=== PATIENT | male | born 1990 | race African-American/Black ===

== ENCOUNTER → 2020-09-16 09:29 | Outpatient (CLI) | payer OTHER, SELFPAY ==
--- NOTE | ~2020-09-16 | XR_ITS ---
EXAMINATION: XR knee LT 3V DATE: 09/16/2020 09:51 INDICATION: Left knee pain. TECHNIQUE: 3 views of left knee were obtained. COMPARISON: Left tibia and fibula radiographs 09/21/2016 FINDINGS: Bone alignment is normal. No fracture. Joint spaces are well maintained. There is a small k nee joint effusion. IMPRESSION: 1. Small knee joint effusion. Reviewed, dictated and finalized at location A. [employer]
== END ==
PROVIDERS: PCP Nurse Practitioner Family; Visit Provider Nurse Practitioner Family
DX: M25.462 Effusion, left knee (principal)
CPT/HCPCS: 73562

== ENCOUNTER → 2020-12-05 11:34 | Outpatient (CLI) | payer OTHER, SELFPAY ==
--- NOTE | ~2020-12-05 | XR_ITS ---
EXAMINATION: XR knee LT 3V EXAM DATE: 12/05/2020 12:16 INDICATION: Left posterior knee pain after playing ball x 2-3 weeks ago. Hx of fluid on left knee x 4 months ago. No surgery. TECHNIQUE: Three projections of the left knee. Comparison is made to prior examination from 09/16/2020 . FINDINGS: No evidence osteochondral defect or joint body in the left knee joint. There is left pat ellar mild to moderate lateral tilt and subluxation. No joint effusion. There are no acute fractures or dislocations identified. There is no subcutaneous gas. The soft tissue is unremarkable. There are no radiopaque foreign bodies. IMPRESSION: Mild to moderate left patellar lateral tilt and subluxation. No acute findings. Reviewed, dictated and finalized at location A. ADVISER IMPRESSION: Mild to moderate left patellar lateral tilt and subluxation. No acu te findings.
== END ==
PROVIDERS: PCP Nurse Practitioner Family; Visit Provider Nurse Practitioner Family
DX: M25.562 Pain in left knee (principal); S83.012A Lateral subluxation of left patella, initial encounter
CPT/HCPCS: 73562

== ENCOUNTER 2021-07-05 10:39 | Emergency (ER) | payer OTHER, SELFPAY ==
[2021-07-05 10:49] VITALS: BP 127/77; PULSE 64; RESP 16; TEMP 36; O2SAT 98
[2021-07-05 10:58] VITALS: BP 129/86; BP 136/74; BP 138/76; PULSE 58; PULSE 67; PULSE 70
[2021-07-05 11:01] VITALS: BP 138/76; BP 145/66; PULSE 58; PULSE 65
--- NOTE | 2021-07-05 11:48 | ECG_ITS ---
Measurements Intervals [place] Rate: 54 P: 69 KS: 171 QRS: 28 QRSD: 90 T: 22 QT: 398 QTc: 381 Interpretive Statements SINUS BRADYCARDIA POSSIBLE LEFT ATRIAL ENLARGEMENT BORDERLINE ECG Electronically Signed On 07-05-2021 13:11:58 CDT by Stew Ferguson D.O.
--- NOTE | 2021-07-05 11:49 | ED.SYNCOPE ---
HPI - Syncope General Chief Complaint: Dizziness Stated Complaint: Passing Out Time Seen by Provider: 07/05/21 11:33 Source: patient and RN notes reviewed Mode of arrival: ambulatory Limitations: no limitations History of Present Illness HPI narrative: Patient presents today complaint of a syncopal episode at work at 920 this morning. States the incident occurred after he went from a sitting to standing position. States the loss of consciousness lasted for 2 seconds but he woke up lying on the ground. Syncopal episode was witnessed by coworkers. Denies head injury. States when he went from a sitting to standing position he was slightly dizzy prior to the syncopal episode. Prior to passing out, he denies chest pain, shortness of breath, palpitations or racing heart, nausea or vomiting, vision changes, numbness or tingling in the extremities, weakness. Last month, he had a similar episode at home. States over the last 3 to 4 months, patient has had similar episodes of feeling dizzy when going from a sitting to standing position, but without the syncopal episodes. MD complaint: loss of consciousness Related Data Allergies Allergy/AdvReac Type Severity Reaction Status Date / Time No Known Allergies Allergy Unverified 03/22/19 09:17 Review of Systems Review of Systems: CONSTITUTIONAL: Denies body aches, fever, chills, or sweats. EYES: Denies visual changes, redness, or discharge. ENT: Denies rhinorrhea, congestion, sore throat, or otalgia. CARDIOVASCULAR: Denies chest pain, palpitations, or edema. RESPIRATORY: Denies cough or dyspnea. GASTROINTESTINAL: Denies abdominal pain, nausea, vomiting, or diarrhea. GENITOURINARY: Denies dysuria or hematuria. SKIN: Denies rash, itching, or wounds. MUSCULOSKELETAL: Denies back pain, joint pain, or myalgia. NEUROLOGIC: Denies headache, numbness, tingling, or weakness.+ Syncope PSYCH: Denies depression or anxiety. PMFSH Comments At time of signature, I have reviewed and agree with nursing past medical, surgical, social and family history unless otherwise noted. Please see nursing chart for further information. There is no relevant family history pertinent to the presenting complaint Exam Narrative: GENERAL: Well-appearing, well-nourished, and in no acute distress. HEAD: Normocephalic, atraumatic. EYES: EOMI. No redness or drainage. Conjunctivae normal. ENT: Mucous membranes pink and moist. NECK: Normal AROM. Supple. No lymphadenopathy. CHEST: No respiratory distress. Clear to auscultation. HEART: Regular rate and rhythm. No murmur appreciated. Normal peripheral pulses. ABDOMEN: Soft, nontender, nondistended, normal active bowel sounds. MUSCULOSKELETAL: No bony tenderness. EXTREMITIES: Normal range of motion. No edema. SKIN: Warm, dry, no rash. Capillary refill normal. Normal skin turgor. NEURO: No focal deficits. Alert and oriented x3. Gait steady. PSYCH: Normal affect. No signs of depression or anxiety. Course Vital Signs Vital signs: Vital Signs Temperature 96.8 F L 07/05/21 10:49 Pulse Rate 64 07/05/21 10:49 Respiratory Rate 16 07/05/21 10:49 Blood Pressure 127/77 07/05/21 10:49 Pulse Oximetry 98 07/05/21 10:49 Temperature 96.8 F L 07/05/21 10:49 Pulse Rate 65 07/05/21 11:01 Respiratory Rate 16 07/05/21 10:49 Blood Pressure 145/66 H 07/05/21 11:01 Pulse Oximetry 98 07/05/21 10:49 Reviewed. Pt has been instructed to follow up with his PCP regarding his elevated blood pressure today. MDM - Syncope Differential Diagnosis Differential diagnosis: Likely syncope due to orthostatic hypotension, vasovagal syncope, complete atrioventricular block and dehydration ECG Data EKG #1: Attestation: I personally reviewed and interpreted this ECG as follows: ECG completion date: 07/05/21 ECG completion time: 12:01 Prior ECG tracings: not available for review Interpretation: HR 54, MA interval 171 EKG Interpretat
== END 2021-07-05 12:18 | disposition home or self-care (01) ==
PROVIDERS: Emergency Provider Nurse Practitioner; PCP Nurse Practitioner Family
DX: R55 Syncope and collapse (principal)
CPT/HCPCS: 93005; 99213; G0463

== ENCOUNTER 2021-07-30 14:55 | Outpatient (CLI) | payer OTHER, SELFPAY ==
--- NOTE | 2021-07-30 | ECHO_ITS ---
Patient Info Name: Ethel Escobedo Age: 30 years : 1990 Gender: Male Ht: 73 in Wt: 212 lbs BSA: 2.24 m2 HR: 59 bpm BP: 136 / 78 mmHg Heart Rhythm: Sinus Rhythm Technical Quality: Good Exam Date: 07/30/2021 3:20 PM Exam Location: [facility] Patient Status: Outpatient Admit Date: 07/30/2021 Staff Ordering Physician: Oh, Danny ELLIS Egg Trayer: Alexandrea Nicholas RDCS Attending Provider: Oh, Danny ELLIS Exam Type: CA echo doppler color flow Study Info Indications - SYNCOPY /COLLASPE Complete two-dimensional, color flow and Doppler transthoracic echocardiogram is performed. Summary 1. Complete two-dimensional, color flow and Doppler transthoracic echocardiogram is performed. 2. Left ventricular chamber dimension is normal. 3. Left ventricular systolic function is normal, estimated at 60-65%. 4. There is no increased left ventricular wall thickness. 5. The left ventricular diastolic function is normal. 6. Right atrial chamber dimension is mildly enlarged. 7. There is trace tricuspid valve regurgitation. 8. No pulmonary hypertension, estimated pulmonary arterial systolic pressure is 26 mmHg. Left Ventricle Left ventricular chamber dimension is normal. Left ventricular systolic function is normal, estimated at 60-65%. There is no increased left ventricular wall thickness. The left ventricular diastolic function is normal. Right Ventricle Right ventricular chamber dimension is normal. Right ventricular systolic function is normal. Left Atria Left atrial chamber dimension is normal. Right Atria Right atrial chamber dimension is mildly enlarged. Aortic Valve The aortic valve is trileaflet. There is no aortic valve stenosis. There is no aortic valve regurgitation. Pulmonic Valve The pulmonic valve is normal. There is mild pulmonic regurgitation. Mitral Valve The mitral valve has normal leaflets. There is trace mitral valve regurgitation. Tricuspid Valve The tricuspid valve leaflets are normal. There is trace tricuspid valve regurgitation. No pulmonary hypertension, estimated pulmonary arterial systolic pressure is 26 mmHg. Pericardium/Pleural The pericardium appears normal. There is no pericardial effusion. Inferior Vena Cava Normal inferior vena cava with >50% collapse upon inspiration consistent with normal right atrial pressure, 5 mmHg. Aorta The aortic root size at the sinus of Valsalva is normal. Left Ventricular Outflow Tract Name Value Normal LVOT 2D LVOT Diameter 2.1 cm LVOT Doppler LVOT Peak Gradient 4 mmHg LVOT Mean Gradient 2 mmHg LVOT VTI 21 cm LVOT VTI/AV VTI Ratio 0.9 LVOT Stroke Volume 74 ml LVOT CO 15.5 l/min LVOT CI 6.9 l/min/m2 Pulmonic Valve Name Value Normal
== END 2021-07-30 14:56 | disposition home or self-care (01) ==
LOC: ANHCARD 15:02
PROVIDERS: PCP Nurse Practitioner Family; Visit Provider Nurse Practitioner Family
DX: R55 Syncope and collapse (principal); I51.7 Cardiomegaly
CPT/HCPCS: 93306

== ENCOUNTER 2022-02-21 09:33 | Emergency (ER) | payer OTHER, SELFPAY ==
--- NOTE | 2022-02-21 09:34 | ED.URI ---
HPI - URI/Sore Throat General Stated Complaint: cough/congestion Time Seen by Provider: 02/21/22 09:34 Source: patient Mode of arrival: ambulatory Limitations: no limitations History of Present Illness HPI Narrative: Mr. Escobedo is a 31-year-old male patient presenting to the clinic today with complaints of productive cough and nasal congestion x2 days. He reports that he has nasal congestion and a productive cough. He denies any sinus pressure, fever, or chills. Does report that he does have some seasonal allergies. No known exposure to anyone with COVID, flu, or strep. MD elicited complaint: nasal congestion Related Data Allergies Allergy/AdvReac Type Severity Reaction Status Date / Time No Known Allergies Allergy Unverified 03/22/19 09:17 Review of Systems Review of Systems: Pertinent positives per HPI. Patient denies any fever, chills, rash, headache, visual changes, dizziness, sore throat, shortness of breath, chest pain, palpitations, nausea, vomiting, diarrhea, constipation, abdominal pain, or any urinary issues. PMFSH Comments At the time of my signature, I reviewed and agree with the nursing past medical, surgical, social, and family history. There is no relevant family history pertinent to the patient complaint. Exam Narrative: General: Well-developed, well nourished, in no apparent distress Head: Normocephalic, atraumatic Eyes: Pupils equally round and reactive to light bilaterally, EOM intact, sclera and conjunctive clear, no discharge, lids normal Ears: TMs intact and clear, ear canals clear, no drainage, grossly hearing normal. Nose: Nares patent, clear nasal discharge, moderate inflammation, no sinus tenderness. Mouth: Oral pharynx without lesions or masses, good dentition, MMM. Postnasal drip Neck: Supple, trachea midline, no enlargement of anterior or posterior cervical nodes, no thyroid masses or goiter palpable. Cardio: Regular rate and rhythm, s1 and s2 normal, no murmur appreciated. Resp: Clear to auscultation bilaterally, no rhonchi, rales, wheezing or rubs Course Course Emergency Course: Portions of this record may have been created with voice recognition software. Level of Care: Express Care Visit Vital Signs Vital signs: Vital signs reviewed MDM - URI/Sore Throat MDM Narrative Medical decision making narrative: At the time of visit patient is resting comfortably on the exam table. He is complaining of some nasal congestion and a productive cough. Does not know what color the phlegm is that he is coughing up as he is spitting it out and not looking at it. No fever or chills. No known exposure to anyone with COVID flu or strep. I suspect that he has an upper respiratory infection versus allergic rhinitis and supportive measures were discussed and he voiced understanding of discharge instructions. Differential Diagnosis Differential diagnosis: Likely upper respiratory infection, croup, otitis media, sinusitis, viral infection, bronchitis, influenza, pharyngitis and other (Allergic rhinitis) Discharge Plan Discharge Clinical Impression: URI (upper respiratory infection) Qualifiers: URI type: unspecified URI Qualified Code(s): J06.9 - Acute upper respiratory infection, unspecified Patient Disposition: Home, Self-Care Condition: Stable Instructions: Upper Respiratory Infection (ED) Additional Instructions: Take prescription medications only as prescribed Increase fluids and stay well hydrated Tylenol/motrin for pain/fever Flonase and OTC antihistamines as directed Vicks vapor rub to open sinuses Sinus rinses for congestion Cepacol spray, cough drops, throat lozenges, warm tea with honey/lemon, gargle salt water to soothe throat BRAT diet for diarrhea Clear liquids x 24 hours then advance as tolerated for nausea/vomiting May return to the clinic if symptoms worsen Go to the ED if you develop dehydration, weakness, lethargy, shortness of breath, or chest pain.
[2022-02-21 09:41] VITALS: BP 135/77; PULSE 57; RESP 16; TEMP 36.1; O2SAT 99
== END 2022-02-21 09:52 | disposition home or self-care (01) ==
LOC: EXPCOLL 09:36
PROVIDERS: Emergency Provider Nurse Practitioner Family
DX: J06.9 Acute upper respiratory infection, unspecified (principal)
CPT/HCPCS: 99213; G0463

== ENCOUNTER 2022-03-13 12:37 | Emergency (ER) | payer OTHER, SELFPAY ==
[2022-03-13 12:43] VITALS: BP 132/80; PULSE 66; RESP 21; TEMP 36.2; O2SAT 100
--- NOTE | 2022-03-13 12:47 | ED.GENADULT ---
HPI - General Adult General Chief complaint: Unspecified Stated complaint: Work Note Time Seen by Provider: 03/13/22 12:48 Source: patient Mode of arrival: ambulatory Limitations: no limitations History of Present Illness HPI narrative: 31-year-old male presented requesting a work note, he states he had a headache when he woke up and called off of work. He states after he took a Tylenol the headache resolved but is required to present to work. He denies associated dizziness, vision changes, nausea or vomiting. Related Data Home Medications Medication Instructions Recorded Confirmed No Home Medications 03/13/22 03/13/22 Allergies Allergy/AdvReac Type Severity Reaction Status Date / Time No Known Allergies Allergy Verified 03/13/22 12:45 Review of Systems Review of Systems: CONSTITUTIONAL: Denies body aches, fever, chills, or sweats. EYES: Denies visual changes, redness, or discharge. ENT: Denies rhinorrhea 11 years CARDIOVASCULAR: Denies chest pain RESPIRATORY: Denies cough or dyspnea. NEUROLOGIC: Denies headache, numbness, tingling, or weakness. All systems reviewed & are unremarkable except as noted in HPI and below PMFSH Comments At time of signature, I have reviewed and agree with nursing past medical, surgical, social and family history unless otherwise noted. Please see nursing chart for further information. There is no relevant family history pertinent to the presenting complaint Exam Narrative: GENERAL: Well-appearing HEAD: atraumatic. EYES: PERRLA, EOMI. No redness or drainage. Conjunctivae normal. ENT: Mucous membranes pink and moist. No rhinorrhea. TMs normal bilaterally. NECK: Normal AROM. CHEST: Clear to auscultation. HEART: Regular rate and rhythm NEURO: No focal deficits. Alert and oriented x3. Gait steady. PSYCH: Normal affect. Course Course Emergency Course: Patient is aware of diagnosis, understands and agrees to treatment plan. Anticipatory guidance given. Patient agrees to follow-up as directed and is aware of reasons to seek care at the emergency department. Portions of this record may have been created with voice recognition software Level of Care: Express Care Visit Medical Decision Making Differential Diagnosis Differential Diagnosis: headache, allergic rhinitis Vital Signs Vital Signs: reviewed Discharge Plan Discharge Clinical Impression: Encounter for wellness examination Patient Disposition: Home, Self-Care Condition: Stable Instructions: Antibiotic Form Additional Instructions: Follow up with your primary care provider as needed in 1-2 weeks Go to the ER for worsening symptoms or concerns Prescriptions: No Action No Home Medications Follow-up/Referrals: Oh,CALEB Delgado [Primary Care Provider] - Stand Alone Forms: Work/School Release IP Time of Disposition: 12:50
== END 2022-03-13 12:52 | disposition home or self-care (01) ==
PROVIDERS: Emergency Provider Nurse Practitioner Family; PCP Nurse Practitioner Family
DX: Z00.00 Encounter for general adult medical examination without abnormal findings (principal)
CPT/HCPCS: 99211; G0463

== ENCOUNTER 2022-06-16 12:56 | Emergency (ER) | payer OTHER, SELFPAY ==
--- NOTE | 2022-06-16 13:05 | ED.SKABFB ---
HPI - Skin/Abscess/Foreign Bdy General Chief complaint: Skin/Abscess/Foreign Body Stated complaint: blister on left hand Time Seen by Provider: 06/16/22 13:05 Source: patient Mode of arrival: ambulatory Limitations: no limitations History of Present Illness HPI narrative: Mr. Escobedo is a 31-year-old male patient presenting to the clinic today with complaints of a blister on his left hand. He reports he recently came back from [place]. He noticed a blister to the left hand, states that it was itchy and it popped. He is concerned for any infection. Related Data Home Medications Medication Instructions Recorded Confirmed No Home Medications 03/13/22 06/16/22 Allergies Allergy/AdvReac Type Severity Reaction Status Date / Time No Known Allergies Allergy Verified 06/16/22 13:04 Review of Systems Review of Systems: Pertinent positives per HPI. Patient denies any fever, chills, rash, headache, visual changes, dizziness, cough, runny nose, sore throat, shortness of breath, chest pain, palpitations, nausea, vomiting, diarrhea, constipation, abdominal pain, or any urinary issues. PMFSH Comments At the time of my signature, I reviewed and agree with the nursing past medical, surgical, social, and family history. There is no relevant family history pertinent to the patient complaint. Exam Narrative: General: Well-developed, well nourished, in no apparent distress Head: Normocephalic, atraumatic. Cardio: Regular rate and rhythm, s1 and s2 normal, no murmur appreciated. Resp: Clear to auscultation bilaterally, no rhonchi, rales, wheezing or rubs. Integumentary: [place], warm, and dry, small popped itchy blister without redness, drainage, or swelling to the left dorsal hand between the first and second digit Course Course Emergency Course: Portions of this record may have been created with voice recognition software. Level of Care: Express Care Visit Vital Signs Vital signs: Vital Signs Temperature 35.9 C L 06/16/22 13:12 Pulse Rate 63 06/16/22 13:12 Respiratory Rate 16 06/16/22 13:12 Blood Pressure 132/82 06/16/22 13:12 Pulse Oximetry 100 06/16/22 13:12 Oxygen Delivery Room Air 06/16/22 13:12 Temperature 35.9 C L 06/16/22 13:12 Pulse Rate 63 06/16/22 13:12 Respiratory Rate 16 06/16/22 13:12 Blood Pressure 132/82 06/16/22 13:12 Pulse Oximetry 100 06/16/22 13:12 Oxygen Delivery Room Air 06/16/22 13:12 Vital signs reviewed MDM - Skin/Abscess/Foreign Bdy MDM Narrative Medical decision making narrative: At the time of visit patient was resting comfortably on the exam table. Supportive measures were discussed with the patient he voiced understanding of discharge instructions and agrees to treatment plan. Differential Diagnosis Differential diagnosis: Likely abscess of skin or subcutaneous tissue, insect bites and contact dermatitis Discharge Plan Discharge Clinical Impression: Blister Patient Disposition: Home, Self-Care Condition: Stable Instructions: Antibiotic Form, Blister (ED) Additional Instructions: Keep area clean and dry May apply hydrocortisone cream [id number] to the affected area Watch for signs and symptoms of infection such as redness, swelling, pain, or purulent discharge Prescriptions: No Action No Home Medications Follow-up/Referrals: UNKNOWN,DOCTOR [Primary Care Provider] - Stand Alone Forms: Work/School Release IP Time of Disposition: 13:25 Quality NIHSS Nursing Documentation ED NIHSS nursing documentation: reviewed/agree
[2022-06-16 13:12] VITALS: BP 132/82; PULSE 63; RESP 16; TEMP 35.9; O2SAT 100
== END 2022-06-16 13:40 | disposition home or self-care (01) ==
PROVIDERS: Emergency Provider Nurse Practitioner Family
DX: S60.522A Blister (nonthermal) of left hand, initial encounter (principal); X58.XXXA Exposure to other specified factors, initial encounter
CPT/HCPCS: 99211; G0463

== ENCOUNTER 2022-08-08 12:06 | Emergency (ER) | payer OTHER, SELFPAY ==
[2022-08-08 12:08] VITALS: BP 126/85; PULSE 75; RESP 16; TEMP 36.6; O2SAT 99
--- NOTE | 2022-08-08 12:41 | ED.HA ---
HPI - Headache General Chief Complaint: Headache Stated Complaint: sosa Time Seen by Provider: 08/08/22 12:42 Source: patient Mode of arrival: ambulatory Limitations: no limitations History of Present Illness HPI Narrative: 31-year-old male presented for complaint of headache this morning causing him to call off of work. He states he took a Tylenol and the head pain resolved. He denies associated sinus pressure congestion, ear pain or dizziness, vision changes, fevers or chills. No other complaints at this time. He is requesting a work note. Related Data Home Medications Medication Instructions Recorded Confirmed No Home Medications 03/13/22 08/08/22 Allergies Allergy/AdvReac Type Severity Reaction Status Date / Time No Known Allergies Allergy Verified 08/08/22 12:28 Review of Systems Review of Systems: CONSTITUTIONAL: Denies body aches, fever, chills, or sweats. EYES: Denies visual changes, redness, or discharge. ENT: Denies rhinorrhea, congestion, sore throat, or otalgia. CARDIOVASCULAR: Denies chest pain, palpitations, or edema. RESPIRATORY: Denies cough or dyspnea. GASTROINTESTINAL: Denies abdominal pain, nausea, vomiting, or diarrhea. GENITOURINARY: Denies dysuria or hematuria. SKIN: Denies rash, itching, or wounds. MUSCULOSKELETAL: Denies back pain, joint pain, or myalgia. NEUROLOGIC: Denies headache, numbness, tingling, or weakness. All systems reviewed & are unremarkable except as noted in HPI and below PMFSH Comments At time of signature, I have reviewed and agree with nursing past medical, surgical, social and family history unless otherwise noted. Please see nursing chart for further information. There is no relevant family history pertinent to the presenting complaint Exam Narrative: GENERAL: Well-appearing HEAD: Normocephalic, atraumatic. EYES: EOMI. No redness or drainage. Conjunctivae normal. ENT: Mucous membranes pink and moist. No rhinorrhea. NECK: Normal AROM. Supple. No lymphadenopathy. CHEST: Clear to auscultation. HEART: Regular rate and rhythm. ABDOMEN: Soft, nontender, nondistended, normal active bowel sounds. SKIN: Warm, dry, no rash. NEURO: No focal deficits. Alert and oriented x3. PSYCH: Normal affect. Course Course Emergency Course: Patient is aware of diagnosis, understands and agrees to treatment plan. Anticipatory guidance given. Patient agrees to follow-up as directed and is aware of reasons to seek care at the emergency department. Portions of this record may have been created with voice recognition software Level of Care: Express Care Visit Vital Signs Vital signs: Vital Signs Temperature 97.9 F 08/08/22 12:08 Pulse Rate 75 08/08/22 12:08 Respiratory Rate 16 08/08/22 12:08 Blood Pressure 126/85 08/08/22 12:08 Pulse Oximetry 99 08/08/22 12:08 Oxygen Delivery Room Air 08/08/22 12:08 Temperature 97.9 F 08/08/22 12:08 Pulse Rate 75 08/08/22 12:08 Respiratory Rate 16 08/08/22 12:08 Blood Pressure 126/85 08/08/22 12:08 Pulse Oximetry 99 08/08/22 12:08 Oxygen Delivery Room Air 08/08/22 12:08 MDM - Headache MDM Narrative Medical decision making narrative: Advised supportive measures and signs/symptoms to go to the ER. Pt is appropriate for outpt treatment and f/u. Differential Diagnosis Differential diagnosis: Likely migraine, tension headache, headache and sinusitis Discharge Plan Discharge Clinical Impression: History of headache Patient Disposition: Home, Self-Care Condition: Stable Instructions: Acute Headache (ED) Additional Instructions: Tylenol or ibuprofen as needed for headache Drink plenty of fluids. Follow up with your primary care provider as needed in 1 week Go to the ER for worsening symptoms or concerns Prescriptions: No Action No Home Medications Follow-up/Referrals: Oh,CALEB Delgado [Primary Care Provider] - Stand Alone Forms: Work/School R
== END 2022-08-08 12:48 | disposition home or self-care (01) ==
PROVIDERS: Emergency Provider Nurse Practitioner Family; PCP Nurse Practitioner Family
DX: R51.9 Headache, unspecified (principal)
CPT/HCPCS: 99211; G0463

== ENCOUNTER 2022-09-12 13:39 | Emergency (ER) | payer OTHER, SELFPAY ==
[2022-09-12 15:02] VITALS: BP 125/82; PULSE 63; RESP 16; TEMP 36.6; O2SAT 100
--- NOTE | 2022-09-12 15:31 | ED.URI ---
HPI - URI/Sore Throat General Chief Complaint: Upper Respiratory Infection Stated Complaint: Sore Throat Time Seen by Provider: 09/12/22 15:32 Source: patient Mode of arrival: ambulatory Limitations: no limitations History of Present Illness HPI Narrative: 31-year-old male presented requesting a work note stating he woke with a stuffy nose and sore throat but symptoms have improved. He would like to return to work well. He denies sick contacts. Denies shortness of breath, wheezing, nausea vomiting, fevers or chills. Related Data Home Medications Medication Instructions Recorded Confirmed No Home Medications 03/13/22 09/12/22 Allergies Allergy/AdvReac Type Severity Reaction Status Date / Time No Known Allergies Allergy Verified 09/12/22 15:07 Review of Systems Review of Systems: CONSTITUTIONAL: Denies body aches, fever, chills, or sweats. EYES: Denies visual changes, redness, or discharge. ENT: Denies rhinorrhea, congestion, sore throat, or otalgia. CARDIOVASCULAR: Denies chest pain, palpitations, or edema. RESPIRATORY: Denies cough or dyspnea. GASTROINTESTINAL: Denies abdominal pain, nausea, vomiting, or diarrhea. GENITOURINARY: Denies dysuria or hematuria. SKIN: Denies rash, itching, or wounds. MUSCULOSKELETAL: Denies back pain, joint pain, or myalgia. NEUROLOGIC: Denies headache, numbness, tingling, or weakness. All systems reviewed & are unremarkable except as noted in HPI and below PMFSH Comments At time of signature, I have reviewed and agree with nursing past medical, surgical, social and family history unless otherwise noted. Please see nursing chart for further information. There is no relevant family history pertinent to the presenting complaint Exam Narrative: GENERAL: Well-appearing EYES: EOMI. No redness or drainage. Conjunctivae normal. ENT: Mucous membranes pink and moist. No rhinorrhea. TMs normal bilaterally. Throat normal. Uvula midline. NECK: Normal AROM. Supple. No lymphadenopathy. CHEST: clear to auscultation. HEART: Regular rate and rhythm. ABDOMEN: Soft, nontender, nondistended, normal active bowel sounds. EXTREMITIES: Normal range of motion. No edema. SKIN: Warm, dry, no rash. Capillary refill normal. Normal skin turgor. Course Course Emergency Course: Patient is aware of diagnosis, understands and agrees to treatment plan. Anticipatory guidance given. Patient agrees to follow-up as directed and is aware of reasons to seek care at the emergency department. Portions of this record may have been created with voice recognition software Level of Care: Express Care Visit Vital Signs Vital signs: Vital Signs Temperature 97.9 F 09/12/22 15:02 Pulse Rate 63 09/12/22 15:02 Respiratory Rate 16 09/12/22 15:02 Blood Pressure 125/82 09/12/22 15:02 Pulse Oximetry 100 09/12/22 15:02 Oxygen Delivery Room Air 09/12/22 15:02 Temperature 97.9 F 09/12/22 15:02 Pulse Rate 63 09/12/22 15:02 Respiratory Rate 16 09/12/22 15:02 Blood Pressure 125/82 09/12/22 15:02 Pulse Oximetry 100 09/12/22 15:02 Oxygen Delivery Room Air 09/12/22 15:02 Discharge Plan Discharge Clinical Impression: Acute rhinitis Patient Disposition: Home, Self-Care Condition: Stable Instructions: Upper Respiratory Infection (ED) Additional Instructions: Follow up with your primary care provider as needed in 1 week Go to the ER for worsening symptoms or concerns Prescriptions: No Action No Home Medications Follow-up/Referrals: Oh,CALEB Delgado [Primary Care Provider] - Stand Alone Forms: Work/School Release IP Time of Disposition: 15:35
== END 2022-09-12 15:39 | disposition home or self-care (01) ==
PROVIDERS: Emergency Provider Nurse Practitioner Family; PCP Nurse Practitioner Family
DX: J00 Acute nasopharyngitis [common cold] (principal)
CPT/HCPCS: 99211; G0463

== ENCOUNTER 2023-02-18 11:30 | Emergency (ER) | payer OTHER, SELFPAY ==
[2023-02-18 11:38] VITALS: BP 140/82; PULSE 93; RESP 16; TEMP 36.9; O2SAT 99
--- NOTE | 2023-02-18 12:01 | ED.LOWEXIN ---
HPI - Extremity Injury (Lower) General Chief Complaint: Extremity Injury, Lower Stated Complaint: Right Ankle Pain Time Seen by Provider: 02/18/23 12:01 Source: patient Mode of arrival: ambulatory Limitations: no limitations History of Present Illness HPI Narrative: 32-year-old male presented for complaint of right ankle pain and swelling after injury this morning. He states at 0500 he is playing basketball, when he landed on the ankle wrong, possibly inverting the foot. States he heard a pop. Has not taken anything for pain. He has been using crutches from home. Related Data Allergies Allergy/AdvReac Type Severity Reaction Status Date / Time No Known Allergies Allergy Verified 02/18/23 12:04 Review of Systems Review of Systems: CONSTITUTIONAL: Denies body aches, fever, chills EYES: Denies visual changes ENT: Denies rhinorrhea, congestion CARDIOVASCULAR: Denies chest pain, palpitations, or edema. RESPIRATORY: Denies cough or dyspnea. GASTROINTESTINAL: Denies abdominal pain, nausea, vomiting, or diarrhea. SKIN: Denies rash, itching, or wounds. MUSCULOSKELETAL: per HPI NEUROLOGIC: Denies headache, numbness, tingling, or weakness. All systems reviewed & are unremarkable except as noted in HPI and below PMFSH Past Medical History Medical History (Updated 02/18/23 @ 12:17 by Dyan Awad, ISA) No pertinent past medical history Comments At time of signature, I have reviewed and agree with nursing past medical, surgical, social and family history unless otherwise noted. Please see nursing chart for further information. There is no relevant family history pertinent to the presenting complaint Exam Narrative: GENERAL: Well-appearing CHEST: Speaks in full sentences. No respiratory distress. HEART: Regular rate and rhythm. Normal and equal peripheral pulses. EXTREMITIES: Right foot has normal strength and sensation, limited range of motion to ankle with flexion/extension/rotation due to pain with movement. Tender medially. Moderate right ankle swelling laterally; no ecchymosis. No open wounds or obvious deformity; pulse palpable and equal bilaterally, skin warm, dry, pink. Capillary refill less than 3 seconds. SKIN: Warm, dry, no rash. NEURO: Alert and oriented x3. PSYCH: Normal mood and affect Course Course Emergency Course: Patient is aware of diagnosis, understands and agrees to treatment plan. Anticipatory guidance given. Patient agrees to follow-up as directed and is aware of reasons to seek care at the emergency department. Portions of this record may have been created with voice recognition software Level of Care: Express Care Visit Vital Signs Vital signs: Vital Signs Temperature 98.4 F 02/18/23 11:38 Pulse Rate 93 02/18/23 11:38 Respiratory Rate 16 02/18/23 11:38 Blood Pressure 140/82 02/18/23 11:38 Pulse Oximetry 16 L 02/18/23 11:38 Oxygen Delivery Room Air 02/18/23 11:38 Temperature 98.4 F 02/18/23 11:38 Pulse Rate 93 02/18/23 11:38 Respiratory Rate 16 02/18/23 11:38 Blood Pressure 140/82 02/18/23 11:38 Pulse Oximetry 16 L 02/18/23 11:38 Oxygen Delivery Room Air 02/18/23 11:38 Reviewed Procedures Orthopedic Splinting/Casting Right ankle: Lower Extremity Immobilizer: Donavan wrap MDM - Extremity Injury (Lower) MDM Narrative Medical decision making narrative: Results of x-ray reviewed with patient. Donavan wrap applied, discussed physical exam findings. Advised supportive measures and signs/symptoms to go to the ER. Pt is appropriate for outpt treatment and f/u. Imaging Data Radiologist's impression: Patient: Ethel Escobedo : 1990 MR#: [id number] Age/Sex: 32 / M Acct:[id number] Loc: [facility]? ? ADM Date: 02/18/23Attending Dr: Ordering Physician: Dayn Awad BARGEMAN Date of Service: 02/18/23 Procedure(s): XR ankle RT min 3V Accession Number(s): [id number] cc: Oh, Danny CANON; Dyan Awad
[2023-02-18 12:04] VITALS: O2SAT 99
== END 2023-02-18 12:20 | disposition home or self-care (01) ==
PROVIDERS: Emergency Provider Nurse Practitioner Family; PCP Nurse Practitioner Family
DX: S93.401A Sprain of unspecified ligament of right ankle, initial encounter (principal); S96.911A Strain of unspecified muscle and tendon at ankle and foot level, right foot, initial encounter; X50.0XXA Overexertion from strenuous movement or load, initial encounter; Y93.67 Activity, basketball
CPT/HCPCS: 73610; 99213; G0463